=== PATIENT | male | born 1945 | race Caucasian/White ===

== ENCOUNTER 2019-11-02 12:47 | Inpatient (IN) | payer OTHER ==
[~2019-11-02] VITALS: Ht 182.9 cm; Wt 66.1 kg
[2019-11-02 12:48] VITALS: BP 112/64
[2019-11-02] MEDS ORDERED: DEPAKOTE500 MG PO (12:50)
[2019-11-02] MEDS ORDERED: FLONASE 0.05%50 MCG NASAL (12:52)
[2019-11-02] MEDS ORDERED: SYSTANE 0.3-0.415 ML OPHTHALMIC (12:53)
[2019-11-02] MEDS ORDERED: ZYPREXA2.5 MG PO (12:54)
[2019-11-02] MEDS ORDERED: HYDROCORT-PRAMO30 G1 RECTAL (12:54)
[2019-11-02] MEDS ORDERED: ZOLOFT25 MG PO (12:54)
[2019-11-02] MEDS ORDERED: ACETAMINOPHEN500 M1 PO (12:55)
[2019-11-02] MEDS ORDERED: MYLANTA MAXIMU355 ML PO (12:56)
[2019-11-02] MEDS ORDERED: MILK OF MA400 MG/5 M PO (12:56)
[2019-11-02] MEDS ORDERED: LORAZEPAM 0.50.5 MG PO (12:57)
[2019-11-02 13:24] LABS: URINE BILIRUBIN NEGATIVE (Negative); URINE BLOOD TRACE (Negative); URINE CLARITY CLEAR; URINE COLOR YELLOW; URINE GLUCOSE-RANDOM* NEGATIVE (Negative); URINE KETONES 1+ (Negative); URINE LEUKOCYTES-REFLEX NEGATIVE (Negative); URINE NITRITE-REFLEX NEGATIVE (Negative); URINE PROTEIN (DIPSTICK) NEGATIVE (Negative); URINE SPECIFIC GRAVITY 1.025 (1.005-1.035)
[2019-11-02 13:25] LABS: ABSOLUTE NEUTROPHILS 2.3 thou/uL (1.4-8.2); BASOPHILS 0.3 % (0.0-2.0); HEMATOCRIT 43.3 % (42.0-52.0); HEMOGLOBIN 14.5 gm/dL (14.0-18.0); MCH 30.7 pg (26.0-34.0); MCHC 33.5 g/dL (28.0-37.0); MCV 91.5 fL (80.0-100.0); MONOCYTES 11.6 % (1.0-8.0); PLATELET COUNT 128 thou/uL (150-400); POLYS 56.1 % (36.0-66.0); RBC 4.73 mil/uL (4.50-6.00); RDW 13.4 % (10.5-14.5)
[2019-11-02 13:31] LABS: AMP/METHAMP Negative (Negative); BARBITURATES Negative (Negative); BENZODIAZEPINES Negative (Negative); COCAINE Negative (Negative); METHADONE Negative (Negative); OPIATES Negative (Negative); PCP Negative (Negative)
[2019-11-02 13:37] LABS: ANION GAP 4 mmol/L (7-16); BUN 26 mg/dL (7-18); CALCIUM 9.8 mg/dL (8.5-10.1); CHLORIDE 104 mmol/L (98-107); CO2 33 mmol/L (21-32); CREATININE 1.1 mg/dL (0.7-1.3); GLUCOSE 96 mg/dL (74-106); SODIUM 141 mmol/L (136-145)
[2019-11-02 13:46] LABS: TROPONIN-I <0.06 ng/mL (<0.06)
[2019-11-02 14:42] VITALS: BP 117/67
[2019-11-02 15:22] VITALS: BP 111/65
[2019-11-02 16:52] LABS: SGOT 38 U/L (15-37); SGPT 40 U/L (30-65)
[2019-11-02 18:42] LABS: TSH 2.523 uIU/mL (0.358-3.740)
[2019-11-02 19:41] VITALS: BP 118/92
[2019-11-03 09:02] VITALS: BP 136/73
[2019-11-03 19:57] VITALS: BP 129/85
[2019-11-04 08:00] VITALS: BP 95/50
[2019-11-04 08:47] VITALS: BP 95/50
[2019-11-04 20:00] VITALS: BP 119/77
[2019-11-04 20:50] VITALS: BP 95/50
[2019-11-05 08:31] VITALS: BP 109/66
[2019-11-05 10:45] VITALS: BP 109/66
[2019-11-05 20:23] VITALS: BP 117/85
[2019-11-06 09:01] VITALS: BP 122/76
[2019-11-06 19:20] VITALS: BP 119/72
[2019-11-07 06:35] VITALS: BP 119/72
[2019-11-07 08:47] VITALS: BP 110/71
[2019-11-07 19:20] VITALS: BP 128/106
[2019-11-08 09:04] VITALS: BP 97/62
[2019-11-08 19:48] VITALS: BP 130/84
[2019-11-09 09:28] VITALS: BP 111/75
[2019-11-09 19:33] VITALS: BP 140/71
[2019-11-09 22:00] VITALS: BP 140/71
[2019-11-10 09:25] VITALS: BP 94/68
[2019-11-10 19:54] VITALS: BP 146/65
[2019-11-11 09:27] VITALS: BP 114/71
[2019-11-11 19:44] VITALS: BP 117/66
[2019-11-12 08:00] VITALS: BP 104/72
[2019-11-12 19:40] VITALS: BP 121/47
[2019-11-13 07:10] VITALS: BP 99/57
[2019-11-13 16:15] VITALS: BP 114/61
[2019-11-13 20:20] VITALS: BP 129/72
[2019-11-14 09:23] VITALS: BP 114/95
[2019-11-14 19:36] VITALS: BP 139/70
[2019-11-15 00:31] VITALS: BP 139/70
[2019-11-15 08:21] VITALS: BP 112/71
[2019-11-15 12:03] VITALS: BP 112/70
[2019-11-15 19:50] VITALS: BP 127/64
[2019-11-16 08:30] VITALS: BP 118/80
[2019-11-16 20:01] VITALS: BP 111/94
[2019-11-17 09:13] VITALS: BP 108/81
[2019-11-17 12:19] VITALS: BP 108/81
[2019-11-17 19:36] VITALS: BP 147/68
[2019-11-17 22:15] VITALS: BP 147/68
[2019-11-18 08:00] VITALS: BP 147/68
[2019-11-18 19:32] VITALS: BP 103/64
[2019-11-19 08:16] VITALS: BP 114/85
[2019-11-19 09:11] VITALS: BP 114/85
--- NOTE | 2019-11-19 11:57 | EKG ---
[facility] [place] [address] ELECTROCARDIOGRAM REPORT Name: NEGRO CAZARES Herman Room #: 526B-B ADM IN M.R.#: [id number] Admission: 11/02/19 Attend Phys: Ally Rai MD Discharge: Date of : 43 Report #: [id number] THIS REPORT FOR: cc: MATTY FLORES Physician not on staff Hugo Blankenship MD ~ THIS REPORT FOR: //name// [facility] ED Test Date: 2019-11-02 Test Time: 13:23:25 Pat Name: NEGRO CAZARES Department: Room: Gender: Marketing Ambassador: [facility] : 1945 Requested By: Thanh Aguilar Order Number: [id number] MD: Hugo Blankenship Measurements Intervals [place] Rate: 55 P: 80 [place]: 152 QRS: -57 QRSD: 101 T: 12 QT: 404 QTc: 387 Interpretive Statements Sinus rhythm Left anterior fascicular block Abnormal R-wave progression, early transition Compared to ECG 05/13/1995 07:17:00 Left anterior fascicular block now present Sinus bradycardia no longer present Sinus arrhythmia no longer present Left-axis deviation no longer present ST (T wave) deviation no longer present Electronically Signed On 11-02-2019 14:08:57 CDT by Hugo Blankenship [email or web address] <ELECTRONICALLY SIGNED> By: Hugo Blankenship MD 11/02/19 1408 [id number] 1323 Hugo Blankenship MD /EPI
[2019-11-19 22:26] VITALS: BP 106/77
[2019-11-19 23:28] VITALS: BP 106/77
[2019-11-20 07:35] VITALS: BP 105/70
[2019-11-20 08:30] VITALS: BP 105/70
[2019-11-20 19:57] VITALS: BP 140/67
[2019-11-21 01:23] VITALS: BP 140/67
[2019-11-21 07:46] VITALS: BP 121/91
[2019-11-21 19:54] VITALS: BP 77/55
[2019-11-22 09:29] VITALS: BP 136/74
[2019-11-22 19:57] VITALS: BP 98/68
[2019-11-23] MEDS ORDERED: ACETAMINOP160 MG/54 PO (15:19)
[2019-11-23] MEDS ORDERED: DEPAKOTE SPRIN125 MG PO (15:19)
[2019-11-23] MEDS ORDERED: HALOPERIDOL2 MG/1 ML PO (15:20)
[2019-11-23] MEDS ORDERED: HALOPERIDOL 1 MG1 MG PO (15:20)
[2019-11-23] MEDS ORDERED: TRAZODONE HCL50 MG PO (15:20)
[2019-11-23 19:27] VITALS: BP 115/78
[2019-11-24 08:00] VITALS: BP 136/104
[2019-11-24 08:16] VITALS: BP 136/104
== END 2019-11-24 11:00 | DRG 884 ==
LOC: ER 12:47 → SBH 14:50
PROVIDERS: Emergency Medicine; Nurse Practitioner; Psychiatry & Neurology Psychiatry; ADMIT Hospitalist
DX: F03.91 Unspecified dementia, unspecified severity, with behavioral disturbance (principal); F32.9 Major depressive disorder, single episode, unspecified; J30.2 Other seasonal allergic rhinitis; Z66 Do not resuscitate; Z79.899 Other long term (current) drug therapy
CPT/HCPCS: 10880